=== PATIENT | female | born 1940 | race Caucasian/White ===

== ENCOUNTER 2024-11-14 13:06 | Outpatient (AMB) | payer MEDICARE, SELFPAY ==
--- OUTSIDE RECORDS SUMMARY | 2024-11-14 13:25 | XMS_ITS | Clinical Summary ---
Author Organization [facility] Address [address] [place] [address] Care Team Providers Care Post Partum Nurse Name Role Phone Deneen Castelan MD Primary Care Provider [phone] Social History Tobacco Use Types Packs/Day Years Used Date Smoking Tobacco: Never Assessed Sex and Gender Information Value Date Recorded Sex Assigned at Not on file Gender Identity Not on file Sexual Orientation Not on file Job Start Date Occupation Industry Not on file Not on file Not on file Plan of Treatment Upcoming Encounters Date Type Department Care Team (Late st Contact Info) Description 01/01/2025 2:30 PM EDT Office Visit Gastroenterology - [address] [place] [id number] Adam Vegas MD [address] [place] [address] Health Maintenance Due Date Last Done Comments DTaP,Tdap,and Td Vaccines (1 - Tdap) 1960 Zoster Vaccines (1 of 2) 1991 Pneumococcal Vaccine: 65+ Ye ars (1 of 1 - PCV) 2006 RSV Immunization Patients 60 + Years Old (1 - 1-dose 75+ series) 2016 Depression Screening 05/12/2024 Falls Risk Assessment 05/12/2024 Medicare Annual Wellness Visit 05/12/2024 Osteoporosis Screening (Bone Density Screening) 05/12/2024 Social Influencers of Health Screening 05/12/2024 COVID-19 Vaccine ( - 2023-2 5 season) 2024 Influenza Vaccine (#1) 2024 HIB Vaccines Aged Out No longer eligi ble based on patient's age to complete this topic HPV Vaccines Aged Out No longer eligi ble based on patient's age to complete this topic Hepatitis A Vaccines Aged Out No long er eligible based on patient's age to complete this topic Hepatitis B Vaccines Aged Out No long er eligible based on patient's age to complete this topic IPV Vaccines Aged Out No longer eligi ble based on patient's age to complete this topic MMR Vaccines Aged Out No longer eligi ble based on patient's age to complete this topic Meningococcal ACWY Vaccine Aged Out N o longer eligible based on patient's age to complete this topic RSV Immunization Patients Un isidro 20 months Aged Out No longer eligible b ased on patient's age to complete this topic Varicella Vaccines Aged Out No longer eligible based on patient's age to complete this topic Care Teams Post Partum Nurse Relationship Specialty Start Date End Date Deneen Castelan MD [address] [place] [address] [address] MIKE Benito PCP - General Internal Medicine 10/26/24
[2024-11-14 13:37] VITALS: BP 132/66; PULSE 62; BMI 24.9
--- NOTE | 2024-11-14 13:37 | MHC.OFFVIS ---
Vital Signs 11/14/24 13:37 Height 5 ft Weight 127 lb 6 oz BMI 24.9 BP 132/66 Blood Pressure Location Lt brachial Position Sitting Pulse 62 Pulse Source Pulse Oximeter Intake Visit Reasons: Arthritis Intake Note: Patient presents for follow up on osteoarthritis, sjogren's, raynaud's. She last saw Dr. Coon the last day she worked at [employer]. Allergies penicillin G Adverse Reaction (Intermediate, Unverified 11/14/24 13:47) Unknown aspirin Adverse Reaction (Unknown, Verified 11/14/24 13:47) Unknown nitrofurantoin Adverse Reaction (Unknown, Unverified 11/14/24 13:47) Unknown povidone Adverse Reaction (Unknown, Verified 11/14/24 13:47) povidine idodine topical Sulfa (Sulfonamide Antibiotics) Adverse Reaction (Unknown, Verified 11/14/24 13:47) Unknown egg allergy Adverse Reaction (Unknown, Uncoded 11/14/24 13:47) Unknown HPI HPI Arthritis: Details: Raynaud's syndrome is not controlled in her hands and feet. This is new for her this winter. She feels cold all the time. She is under a lot of stress at home with her grandson moving in who is in the middle of a divorce with children involved. She denies any new joint symptoms, dyspnea, pleurisy, urinary symptoms, rash, skin tightening, fevers. She continues to have dry mouth. She is not taking pilocarpine. She uses OTC biotin lozenges with benefit. She has had no fractures. She brings in bone density report from 04/06/2024. She takes vitamin-D supplement daily. She does not take calcium supplement. She is lactose intolerant and does not eat dairy products. She does not recall on being on Fosamax or any other medication to treat osteoporosis. She denies having heartburn. Review of Systems Const All systems reviewed & are unremarkable except as noted in HPI and below Physical Exam Vital Signs: Last Vital Signs Pulse 62 11/14/24 13:37 BP 132/66 11/14/24 13:37 BMI result Body Mass Index 24.9 Const Other: General: Comfortable CVS: RRR Respiratory: clear to auscultation bilaterally. Good respiratory effort Skin: No lesions seen, no digital ulcerations. Her toes turn purple when exposed to the cold MSK: No tenderness of any joints. Good range of motion of upper extremities. She has limited full knee flexion and external rotation of bilateral hips. No synovitis. Assessment & Plan Assessment & Plan (1) Sjogrens syndrome: Comment: Positive SSA antibody and DEFLECTOR OPERATOR antibody. She has been on azathioprine for possible joint symptoms. We reviewed labs from 09/2024, which do not reveal active disease systemically. She continues to have dry mouth with some benefit on Biotene OTC products. She does not have pilocarpine on her medication list and does not recall taking it anymore. Code(s): M35.00 - Sjogren syndrome, unspecified Category: Medical Plan: Continue azathioprine 100 mg daily. We will consider decreasing dose next visit Restart pilocarpine 5 mg t.i.d. Labs for disease monitoring up-to-date (2) Raynaud disease without gangrene: Comment: Active on amlodipine 2.5 mg daily Code(s): I73.00 - Raynaud's syndrome without gangrene Category: Medical Plan: Increased amlodipine to 5 mg daily Return to clinic in 1 month (3) Osteoporosis: Comment: On bone density 04/06/2024 with lowest T-score -2.5 femoral neck, total hip -2.0, AP spine -0.2. Treatment is indicated. Treatment with Fosamax is indicated. Code(s): M81.0 - Age-related osteoporosis without current pathological fracture Category: Medical Plan: Baseline labs ordered Continue vitamin-D supplement. 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: Code(s): Z79.899 - Other half-way (current) drug therapy Category: Medical Plan: See above Orders: Orders Vitamin D 25-OH Total Today M81.0 - Age-related osteoporosis without current pathological fracture Albumin Level Today M81.0 - Age-related osteoporosis without current pathological fracture Calcium Today M81.0 - Age-related osteoporosis without current pathological fracture Alkaline Phosphatase Bone Today M81.0 - Age-related osteoporosis without current pathological fracture Medications: New amlodipine 5 mg PO DAILY 30 tabs 11RF pilocarpine HCl 5 mg PO TID 90 tabs 5RF Coding Level of Care Code Est Pt Level 4 (30353) Complex EM visit Add On G2211 Diagnoses Sjogrens syndrome M35.00 Raynaud disease without gangrene I73.00 Osteoporosis M81.0 Other engineer system administrator (current) drug therapy Z79.550
== END 2024-11-14 14:18 | disposition home or self-care (01) ==
PROVIDERS: PCP Internal Medicine; Visit Provider Internal Medicine Rheumatology
DX: M35.00 Sjogren syndrome, unspecified (principal); I73.00 Raynaud's syndrome without gangrene; M81.0 Age-related osteoporosis without current pathological fracture; Z79.899 Other long term (current) drug therapy
CPT/HCPCS: 99214; G2211

== ENCOUNTER 2024-11-14 13:06 | Outpatient (REF) | payer MEDICARE, SELFPAY ==
--- OUTSIDE RECORDS SUMMARY | 2024-11-14 14:30 | XMS_ITS | Clinical Summary ---
Author Organization [facility] Address [address] [place] [address] Care Team Providers Care Caramel Candy Maker Helper Name Role Phone Deneen Castelan MD Primary Care Provider [phone] Social History Tobacco Use Types Packs/Day Years [...] [address] [place] [phone] Adam Vegas MD [address] [place] [address] Health Maintenance Due Date Last Done Comments [...] age to complete this topic Care Teams Caramel Candy Maker Helper Relationship Specialty Start Date End Date Deneen Castelan MD [address] [place] [address] [address] MIKE Benito PCP - General Internal Medicine 10/26/24
[2024-11-14 18:28] LABS: Albumin Level 3.8 g/dL (3.5-5.0); Calcium 9.3 mg/dL (8.4-10.2)
[2024-11-14 18:41] LABS: Vitamin D 25-OH Total 105.9 ng/mL (>30)
[2024-11-17 13:58] LABS: Alkaline Phosphatase Bone 11.7 mcg/L (see note)
== END 2024-11-14 13:07 | disposition home or self-care (01) ==
LOC: HO.HKASLDS 13:06
PROVIDERS: PCP Internal Medicine; Visit Provider Internal Medicine Rheumatology
DX: M81.0 Age-related osteoporosis without current pathological fracture (principal); M35.00 Sjogren syndrome, unspecified; I73.00 Raynaud's syndrome without gangrene; Z79.899 Other long term (current) drug therapy
CPT/HCPCS: 36415; 82040; 82306; 82310; 84075; 99212

== ENCOUNTER 2024-12-13 13:04 | Outpatient (AMB) | payer MEDICARE, SELFPAY ==
--- NOTE | 2024-12-13 13:09 | A.OFFVIS_ITS ---
Vital Signs 12/13/24 13:10 Height 5 ft Weight 124 lb 8.979 oz BMI 24.3 BP 118/76 Pulse 66 Pulse Source Palpation Intake Visit Reasons: RTC 1 month Intake Note: Patient presents for follow up on osteoarthritis, sjogren's follow up Allergies penicillin G Adverse Reaction (Intermediate, Verified 12/13/24 13:14) Unknown aspirin Adverse Reaction (Unknown, Verified 12/13/24 13:14) Unknown nitrofurantoin Adverse Reaction (Unknown, Verified 12/13/24 13:14) Unknown povidone Adverse Reaction (Unknown, Verified 12/13/24 13:14) povidine idodine topical Sulfa (Sulfonamide Antibiotics) Adverse Reaction (Unknown, Verified 12/13/24 13:14) Unknown egg allergy Adverse Reaction (Unknown, Uncoded 11/14/24 13:47) Unknown HPI HPI RTC 1 month: Details: She has not noted any difference with taking amlodipine 5 mg daily. She continues to have cold hands and feet. She is constantly warming her hands and feet and using heater and warm blankets. She denies joint pain and stiffness. No joint swelling. No change in dry mouth with pilocarpine. Review of Systems Const All systems reviewed & are unremarkable except as noted in HPI and below Physical Exam Vital Signs: Last Vital Signs Pulse 66 12/13/24 13:10 BP 118/76 12/13/24 13:10 BMI result Body Mass Index 24.3 Const Other: General: Comfortable CVS: RRR Respiratory: clear to auscultation bilaterally. Good respiratory effort Skin: No lesions seen, no digital ulcerations or discoloration of fingertips. The tips of her toes are purple. MSK: No tenderness of any joints. Good range of motion of upper extremities. She has limited full knee flexion and external rotation of bilateral hips. No synovitis. Assessment & Plan Assessment & Plan (1) Sjogrens syndrome: Comment: We reviewed labs from 09/2024, which do not reveal active disease systemically. She continues to have dry mouth with some benefit on Biotene OTC products (losenges qhs) without improvement on pilocarpine. Exams did not reveal inflammatory arthritis or symptoms from inflammatory arthritis. At this time I do not have an indication for patient to be on azathioprine. It is not my preferred drug for treatment of inflammatory arthritis related to Sjogren syndrome. I discussed considering discontinuing azathioprine and monitoring patient's symptoms clinically. Patient agrees with plan. Rheumatology history. Positive SSA antibody and MARKETING PLANNING MANAGER antibody. She has sicca symptoms. She has been on azathioprine for possible joint symptoms started by Dr. Dunn . 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 Monitor joint symptoms clinically. Continue pilocarpine 5 mg t.i.d. I will give it more time as she has only been on it for 1 month. Continue Biotene products with lozenges PRN and q.h.s. Labs for disease monitoring up-to-date Return to clinic in 1-2 months for Raynaud's syndrome management. See below (2) Raynaud disease without gangrene: Comment: Active on amlodipine 5mg daily Code(s): I73.00 - Raynaud's syndrome without gangrene Category: Medical Plan: Increased amlodipine to 7.5 mg daily Return to clinic in 1-2 month (3) Osteoporosis: Comment: On bone density 04/06/2024 with lowest T-score -2.5 femoral neck, total hip -2.0, AP spine -0.2. Treatment is indicated. No history of fragility fracture. Treatment with Fosamax is indicated. Discussed side effects, benefits and monitoring. Code(s): M81.0 - Age-related osteoporosis without current pathological fracture Category: Medical Plan: She discontinued vitamin D due to vitamin D level >100. We discussed the risk of toxicity with high vitamin-D level. Start fosamax 70mg once weekly Bone density due after March 2026 (4) Other local intermodal truck driver (current) drug therapy: Code(s): Z79.899 - Other local intermodal truck driver (current) drug therapy Category: Medical Plan: See above Medications: New alendronate 70 mg PO QWEEK 12 tabs 1RF amlodipine Take 7.5mg daily total 2.5 mg PO DAILY 30 tabs 11RF Coding Level of Care Code Est Pt Level 4 (22004) Complex EM visit Add On G2211 Diagnoses Sjogren's syndrome with keratoconjunctivitis sicca M35.01 Sjogren organ or system involvement: keratoconjunctivitis Raynaud disease without gangrene I73.00 Osteoporosis M81.0 Other local intermodal truck driver (current) drug therapy Z79.894
[2024-12-13 13:10] VITALS: BP 118/76; PULSE 66; BMI 24.3
--- OUTSIDE RECORDS SUMMARY | 2024-12-13 15:28 | XMS_ITS | Clinical Summary ---
Author Organization [facility] Address [address] [place] [address] Care Team Providers Care Leather Goods I Assembler Name Role Phone Deneen Castelan MD Primary Care Provider [phone] Social History Tobacco Use Types Packs/Day Years Used Date Smoking Tobacco: Never Assessed Comments Unknown Sex and Gender Information Value Date Recorded Sex Assigned at Not on file Legal Sex Female 11:03 AM EDT Gender Identity Not on file Sexual Orientation Not on file Plan of Treatment Upcoming Encounters Date Type Department Care Team (Late st Contact Info) Description 01/01/2025 2:40 PM EDT Office Visit Gastroenterology - [address] [place] [address] Adam Vegas MD [address] [place] [address] Health Maintenance Due Date Last Done Comments DTaP,Tdap,and Td Vaccines (1 - Tdap) 1960 Pneumococcal Vaccine: 50+ Ye ars (1 of 1 - PCV) 1991 Zoster Vaccines (1 of 2) 1991 RSV Immunization Patients 60 + Years Old [...] patient's age to complete this topic Meningococcal B Vacine Aged Out No lo nger eligible based on patient's age to complete this topic RSV Immunization Patients Un isidro 20 months Aged Out No longer eligible b ased on patient's age to complete this topic Varicella Vaccines Aged Out No longer eligible based on patient's age to complete this topic Insurance MEDICARE [facility] Care Teams Leather Goods I Assembler Relationship Specialty Start Date End Date Deneen Castelan MD [address] [place] [address] [place] PCP - General Internal Medicine 10/26/24
== END 2024-12-13 13:42 | disposition home or self-care (01) ==
PROVIDERS: PCP Internal Medicine; Visit Provider Internal Medicine Rheumatology
DX: M35.01 Sjogren syndrome with keratoconjunctivitis (principal); I73.00 Raynaud's syndrome without gangrene; M81.0 Age-related osteoporosis without current pathological fracture; Z79.899 Other long term (current) drug therapy
CPT/HCPCS: 99214; G2211

== ENCOUNTER → 2024-12-13 13:04 | Outpatient (BNVA) | payer MEDICARE, SELFPAY | PROVIDERS: PCP Internal Medicine; Visit Provider Internal Medicine Rheumatology | DX: M35.01 Sjogren syndrome with keratoconjunctivitis (principal); I73.00 Raynaud's syndrome without gangrene; M81.0 Age-related osteoporosis without current pathological fracture; Z79.899 Other long term (current) drug therapy | CPT/HCPCS: 99212 ==

== ENCOUNTER 2025-01-11 12:35 | Outpatient (AMB) | payer MEDICARE, SELFPAY ==
--- NOTE | 2025-01-11 12:37 | A.OFFVIS_ITS ---
Vital Signs 01/11/25 12:39 Height 5 ft Weight 129 lb 10.109 oz BMI 25.3 BP 160/100 H Intake Visit Reasons: 4-6 weeks Intake Note: Patients presents today for a follow u for Sj?gren's Syndrome? Accompanied by: Self / Same As Patient Allergies penicillin G Adverse Reaction (Intermediate, Verified 01/11/25 12:41) Unknown aspirin Adverse Reaction (Unknown, Verified 01/11/25 12:41) Unknown nitrofurantoin Adverse Reaction (Unknown, Verified 01/11/25 12:41) Unknown povidone Adverse Reaction (Unknown, Verified 01/11/25 12:41) povidine idodine topical Sulfa (Sulfonamide Antibiotics) Adverse Reaction (Unknown, Verified 01/11/25 12:41) Unknown egg allergy Adverse Reaction (Unknown, Uncoded 11/14/24 13:47) Unknown HPI HPI 4-6 weeks: Details: She continues to have feeling of cold hands and feet especially at night. She denies having paraesthesia or pain when hands and feet are cold. She continues to have discoloration of her hands. She is currently on amlodipine 5 mg b.i.d.. Pharmacy did not have 2.5 mg tablet. It is hard for patient to get up. She does not get up before 09:00. She has increased fatigue that improves by the end of the day. She stopped taking vitamin-D supplement 125 mcg daily (5000 IU). Review of Systems Const All systems reviewed & are unremarkable except as noted in HPI and below Physical Exam Vital Signs: Last Vital Signs BP 160/100 H 01/11/25 12:39 BMI result Body Mass Index 25.3 Const Other: General: Comfortable CVS: RRR Respiratory: clear to auscultation bilaterally. Good respiratory effort Skin: No lesions seen, no digital ulcerations. She has purple discoloration left hand on her MCPs and proximal phalanges. MSK: No tenderness of any joints. Assessment & Plan Assessment & Plan (1) Raynaud disease without gangrene: Comment: She has had no change on amlodipine 5 mg b.i.d. She has discoloration in her left hand with continued sensation of cold hands and feet, which may be related to chronic uncontrolled Raynaud's syndrome. I need to consider alternative etiology such as peripheral vascular disease. Code(s): I73.00 - Raynaud's syndrome without gangrene Category: Medical Plan: Increase amlodipine to 12.5 mg once weekly Her blood pressure is high this visit. I recommend that she monitor her blood pressure. If it continues to remain elevated, contact PCP for further manage ment If her symptoms do not improve at follow-up, I will need to consider getting duplex ultrasound workup of upper extremity and lower extremity to rule out peripheral vascular disease Return to clinic in 3 months (2) Fatigue: Comment: Affecting patient's function as she sleeps in for most of the day. Recent labs 12/2024 reveal normocytic anemia. Code(s): R53.83 - Other fatigue Category: Medical Plan: I recommend that she follow up with PCP for further workup of anemia to determine cause as it may be contributing to her fatigue. Consider sleep study to rule out sleep apnea (3) Osteoporosis: Comment: Vitamin-D level 11/2024 >100. She discontinued vitamin-D supplement. Normal calcium. History: On bone density 04/06/2024 with lowest T-score -2.5 femoral neck, total hip -2.0, AP spine -0.2. Treatment is indicated. No history of fragility fracture. Alendronate started 12/2024-. Code(s): M81.0 - Age-related osteoporosis without current pathological fracture Category: Medical Plan: Continue alendronate once weekly Monitor off of vitamin-D supplement Return to clinic in 3 months. I will be ordering labs for drug monitoring and osteoporosis management at next visit (4) Sjogrens syndrome: Comment: Dry mouth is stable on Biotene OTC products (losenges qhs) and pilocarpine. She has discontinued azathioprine without any new symptoms including development of inflammatory arthritis. Rheumatology history. Positive SSA antibody and COMMUNITY ENGAGEMENT MANAGER antibody. She has sicca symptoms. She has been on azathioprine for possible joint symptoms started by Dr. Dunn . Azathioprine discontinued 12/13/2024 as patient did not have any clinical evidence of inflammatory arthritis and it is not the preferred DMARD therapy for Sjogren's related inflammatory arthritis. 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 Monitor clinically for recurrence of inflammatory arthritis Return to clinic in 3 months Medications: New amlodipine 10 mg PO DAILY 30 tabs 10RF Changed From amlodipine Take 7.5mg daily total 2.5 mg PO DAILY 30 tabs 11RF To amlodipine Take 12.5mg daily total. Increase dose 2.5 mg PO DAILY 30 tabs 11RF Discontinued amlodipine Discontinued Reason: Doctor's Order 5 mg PO DAILY 30 tabs 11RF Coding Level of Care Code Est Pt Level 4 (41246) Complex EM visit Add On G2211 Diagnoses Raynaud disease without gangrene I73.00 Fatigue R53.83 Osteoporosis M81.0 Sjogren's syndrome with keratoconjunctivitis sicca M35.01 Sjogren organ or system involvement: keratoconjunctivitis Time Spent (min) 25
[2025-01-11 12:39] VITALS: BP 160/100; BMI 25.3
--- OUTSIDE RECORDS SUMMARY | 2025-01-11 13:38 | XMS_ITS | Clinical Summary ---
Author Organization [facility] [address] [facility] Address [address] [place] [address] Phone Care Team Providers Care Trail Construction Worker Name Role Phone Deneen Castelan MD Primary Care Provider [phone] Allergies Active Allergy Reactions Criticality Noted Date Comments Aspirin 01/01/2025 Codeine 01/01/2025 Penicillins 01/01/2025 Sulfa (Sulfonamide Antibiotics) 12/10 Medications amLODIPine (NORVASC) 2.5 mg tablet 11/02/2024 Active amLODIPine (NORVASC) 5 mg tablet 11/14/2024 Active atenoloL (TENORMIN) 50 mg tablet 08/09/2024 Active estradioL (ESTRACE) 0.5 mg tablet 11/02/2024 Active FLUoxetine (PROzac) 20 mg capsule 11/02/2024 Active latanoprost (XALATAN) 0.005 % ophthalmic solution 12/30/2024 Active LORazepam (ATIVAN) 1 mg tablet 12/23/2024 Active losartan (COZAAR) 25 mg tablet 11/21/2024 Active omeprazole (PriLOSEC) [address] capsule 11/28/2024 Active simvastatin (ZOCOR) 10 mg tablet 11/09/2024 Active timolol (TIMOPTIC) 0.5 % ophthalmic solution 10/05/2024 Active ursodioL (ACTIGALL) 500 mg tablet 10/29/2024 Active alendronate (FOSAMAX) 70 mg tablet 12/13/2024 Active Active Problems Problem Noted Date Diagnosed Date 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6 oz pur e alcohol) Comments Unknown Sex and Gender Information Value Date Recorded Sex Assigned at Not on file Legal Sex Female 11:03 AM EDT Gender Identity Not on file Sexual Orientation Not on file Obstetrics History Last Filed Vital Signs Vital Sign Reading Time Taken Comments Blood Pressure - - Pulse - - Temperature - - Respiratory Rate - - Oxygen Saturation - - Inhaled Oxygen Concentration - - Weight 57.2 kg (126 lb) 01/01/2025 2:41 PM EDT Height 152.4 cm (5') 01/01/2025 2:41 PM EDT Body Mass Index 24.61 01/01/2025 2:41 PM EDT Plan of Treatment Health Maintenance Due Date Last Done Comments Hepatitis A Vaccines (4 of 4 - Hep A Twinrix risk 4-dose series) 05/04/2012 11/06/2011, 10/23/2011, 06/04/2011, Additional history exists Cholesterol Screening (Lipid Panel) 05/12/2024 Depression Screening 05/12/2024 Falls Risk Assessment 05/12/2024 Medicare Annual Wellness Visit 05/12/2024 Osteoporosis Screening (Bone Density Screening) 05/12/2024 Social Influencers of Health Screening 05/12/2024 COVID-19 Vaccine ( season) 2024 07/25/2022, 01/14/2022, 08/20/2021, Additional history exists Influenza Vaccine (#1) 2024 Hypertension/CHF/CAD Annual BMP Blood Test 01/02/2025 DTaP,Tdap,and Td Vaccines (3 - Td or Tdap) 11/19/2033 11/19/2023, 02/25/2012 Hepatitis B Vaccines Completed 11/06/2011, 10/23/2011, 06/04/2011, Additional history exists Pneumococcal Vaccine: 50+ Years Completed 02/12/2015, 02/25/2012 Zoster Vaccines Completed 09/21/2018, 06/29/2018 RSV Immunization Adult Patients Completed 11/12/2023 HIB Vaccines Aged Out No longer eligi [...] to complete this topic RSV Immunization Patients Under 20 months Aged Out No longer eligible based on patient's age to complete this topic Varicella Vaccines Aged Out No longer eligible based on patient's age to complete [place] [id number] MEDICARE [facility] Care Teams Trail Construction Worker Relationship Specialty Start Date End Date Deneen Castelan MD [address] [place] [address] Jesus [place] PCP - General Internal Medicine 10/26/24
--- OUTSIDE RECORDS SUMMARY | 2025-01-11 13:39 | XMS_ITS | Data Portability ---
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 Patient takes OTC Azo with pain relief. Patient denied fever, chills, nausea, vomiting, blood in her urine, abdominal/back/f lank pain, confusion. Exam: Elderly female well appearing, no acute distress, non-toxic appearance Heart normal rate and rhythm. No murmurs, rubs or gallops. Lungs clear to auscultation; No respiratory distress; No wheezing, rhonchi, or rales Soft, non-tender, and non-distended. Bowel sounds normal. No peritoneal signs. No CVA tenderness DDx considered, but not limited to: UTI - most likely diagnosis based on clinical presentation pyonephritis - unlikely STI - unlikely Work up/Results: Urine dipstick: +2 leukocytes; +2 nitrates; +1 blood Urine culture pending results Plan/Discussion: - UTI is the most likely diagnosis based on clinical presentation and results of urine dipstick - I discussed the patient case with Dr. Michel and under their direction they prescribed the following medications: Macrobid 100mg PO BID X5days - patient was advised to continue taking OTC Azo for 2 days for pain - urine culture pending results; will notify patient if change in antibiotics needed - follow up with PCP as needed if your symptoms worsen or do not improve with treatment within 2-3 days. - educated patient when to seek immediate medical attention, call 911/ED In order to obtain further information and compare any laboratory results/values, I have accessed patient records on the [employer]. This information was pertinent in my medical decision making today. Time On Scene with Patient: 00:44:54 [email or web address] Not available 11/06/2018 15:45:33 06/26/2019 06/26/2019 Overview/History : 79-year-old female, known to , new to this provider, with a Pmhx that includes not limited to erosive esophagitis, diverticulosis, insomnia, Sjogren's syndrome, hypertension, hyperlipidemia, who was evaluated for complaints of right hip pain that started 2 days ago. The patient states she lost her balance falling onto her right side. The following day she noticed increased pain to the right groin that gets worse with ambulation and improves when laying supine. She denies any paresthesias or weakness to her extremities. She denies hitting her head or any other injuries. She has been using her husbands wheelchair to get around although typically does not require assistance. Exam: General: Well appearing, well nourished, NAD. Nontoxic appearing. HEENT: PEERLA. EOMI. Head: Atraumatic. Neck: No midline cervical tenderness. Skin: Good turgor, no rash or unusual bruising. Heart: Regular rate and rhythm. no obvious murmurs. Lungs: Clear to auscultation. No increased respiratory effort. Back: No CVA tenderness. No midline tenderness to T/L spine. Extremities: No cyanosis. Mild discomfort with active ROM ro R hip. No shortening or external rotation. Mild discomfort to palpation of R groin no palpable masses. CSM intact distally. DDx considered, but not limited to: Hip fx. R groin strain. Plan/Discussion: A right hip x-ray was ordered to assess for possible fracture. Patient was advised to use acetaminophen 1000 mg T.i.d. as needed. Discussed the need for further evaluation if she develops increasing pain, paresthesias or any other worrisome symptoms. In order to obtain further information and compare any laboratory results/values, I have accessed old patient records. This information was pertinent in my medical decision making today. Time On Scene with Patient: 00:27:50 [email or web address] Not available 06/27/2019 17:19:29 08/21/2022 08/21/2022 Time On Scene with Patient: 00:55:29 Overview/History : 82 y/o female known to DH new to provider with hx of HTN, hyperlipidemia, erosive esophagitis, diverticulosis, sjogren's syndrome, primary biliary cirrhosis. pt reports she fell yesterday [place] the [place] she tripped while going around the curb/ plants. states she fell landing on her back. denies hitting her head, no LOC. states her back was sore last night but feels better today. she c/o pain in her right distal forearm/ wrist. hand is swollen faint ecchymosis dorsally. she denies any numbness tingling. states she has had her hand and wrist wrapped since last night with tim wrap. Exam: very pleasant 82 y/o female well appearing, alert and NAD. appears in moderate pain, right hand/ wrist is wrapped with tim wrap. mouth moist mucous membranes. no cervial lymphadenopathy. lungs clear to auscultation bilaterally. heart: RRR no murmurs rubs or gallops. abdomen is soft, normal bowel sounds, non tender. no cervical, thoracic, lumbar midline tenderness. strength is normal and equal bilaterally. pulses normal and equal bilaterally. no peripheral edema. right hand: edema and failt ecchymosis noted dorsally. tenderness on palpation of distal radius and dorsal wrist and ulnar aspect. no snuff box tenderness. no metacarpal tenderness. ROM slightly limited due to pain. tenderness throughout ROM. Vital Signs: pt is hypertensive, asymptomatic bp initially 184/86, repeat at the end of visit 170/82, HR 80, RR 16, T 98.4, O2 99% DDx considered, but not limited to: fracture: considered due to trauma, xrays pending. wrist sprain: considered but due to age, pain, swelling, ecchymosis suspicious for fracture. cellulitis: considered but she is afebrile, no open wounds. Work up/Results: xray of the right hand and wrist pending. Plan/Discussion: Right wrist/ hand pain/ sprain: sugar tong splint applied due to injury and suspicion for fracture. advised pt to elevate her wrist and apply ice. do not apply ice directly to the skin. she was instructed to keep the splint on, do not get it wet, ok to use her sling as needed for comfort since splint is heavy. she will call [facility] in the morning to schedule her xrays. take tylenol as directed on the package for pain. advised if fracture is found on xrays she will need to see ortho. BP elevated likely due to pain. she denies cp, sob, dizziness, RENEE, weakness, edema. advised if symptoms worsen ors he develops any RENEE, dizziness, cp, sob, weakness go right to the ER. follow up with pcp in 3-5 days or sooner prn. go to the ER with any worsening symptoms: increased pain, swelling, numbness, cp, sob, dizziness, weakness. Proper Personal Protective Equipment (PPE), including gloves, eye protection and masks were donned and doffed appropriately and all equipment cleaned using approved technique with germicidal disposable wipes prior to and after care of this patient according to [facility] infection prevention protocols. [email or web address] Not available 08/22/2022 01:00:02 08/04/2023 08/04/2023 Time On Scene with Patient: 00:21:51 Brief Overview: 83 y/o female c/o productive cough with green sputum x 2 weeks now. purulent nasal drainage but no sinus pressure or pain. she denies fever but reports body aches, fatigue, decreased appetite and intermittent wheeze. no cp, sob, weakness, RENEE, dizziness. her step son who recently moved in with her a few weeks ago was sick and she suspect she caught what he had, she states he was not covid positive. Vital Signs: BP 120/70, HR 71, RR 18, T 97.7, O2 98% RA Exam: pleasant 83 y/o female appearing mildly ill, alert NAD sitting at kitchen table. mouth: moist mucous membranes no erythema, exudates, uvula is midline. lungs: few rhonchi RLL, no wheezes, rales. no tachypnea. heart: RRR no murmur rubs or gallops. no peripheral edema. no calf tenderness or edema, negative homans. skin: warm and dry no rashes or lesions. DDx considered, with rationale: Pneumonia: considered but she is afebrile, no tachypnea, hypoxia. PE: considered but no hypoxia or tachycardia. CHF: considered but no peripheral edema, no reported weight gain. Bronchitis: considered due to productive cough, VS stable, she is afebrile. Results/ work up: CXR pending. Proper Personal Protective Equipment (PPE), including gloves, eye protection and masks were donned and doffed appropriately and all equipment cleaned using approved technique with germicidal disposable wipes prior to and after care of this patient according to [facility]'s infection prevention protocols. [email or web address] Not available 08/04/2023 16:19:46 Plan of Treatment Reminders Order Date Submit Date Provider Last Modified By Organization Details Last Modified Time Details Appointments None recorded. Lab urinalysis, dipstick 2018 019 cheng [facility] - Home, [address] [place] [address], [id number], 9 12:23:23 culture, urine - [facility] 2018 019 [facility] (Centralized Electronic Ordering - All Locations), Patient Can Go To The Location Of Their Choice, [id number] 9 07:43:09 Referral None recorded. Procedures None recorded. Surgeries None recorded. Imaging XR, chest, 2 view - cough x 2 weeks r/o pneu 2022 023 [facility] [place] [facility] ([facility]), [address] [place] [address], [address], 3 17:26:01 XR, wrist, 3 or more view - fell and injured right wrist 2021 022 [place] [facility] [address] [place], [address], 2 09:23:35 XR, hand, 3 or more view - fell and injured right hand [email or web address] [place], [place] [address]ate Office ([facility]), [address] [place], [address], 3 17:21:12 unlisted imaging order - hip uni W or w/o pelvis 2-3 V-RT 2018 019 [facility] ([facility]), [address], [place], [address], 9 12:21:36 Medication Orders doxycycline hyclate 100 mg tablet 2022 023 [id number], [address] [facility], [place], [address], 14:47:25 Patient TargetsNo targets recorded. Patient Instructions Encounter Date Encounter Id Patient Instructions Last Modified By Organization Details Last Modified Time 11/06/2018 [id number] YOU WERE SEEN FO R URINARY TRACT INFECTION SYMPTOMS. YOUR URINALYSIS WAS POSITIVE FOR INFECTION. ADDITIONAL LABORATORY STUDIES WERE SEND TO CONFIRM THAT YOU WERE PRESCRIBED CORRECT ANTIBIOTICS. WE WILL NOTIFY YOU IF CHANGE OF ANTIBIOTICS NEEDED YOU CAN CONTINUE TAKING AZO TABLETS FOR PAIN FOR THE NEXT 2 DAYS FOLLOW UP WITH YOUR PRIMARY CARE DOCTOR NEEDED IF YOUR SYMPTOMS DO NOT IMPROVE OR WORSEN SEEK IMMEDIATE MEDICAL ATTENTION OR CALL 911 IF SYMPTOMS WORSEN OR IF YOU DEVELOP ANY NEW CONCERNING SYMPTOMS URINARY TRACT INFECTION INSTRUCTIONS BASIC INFORMATION Urinary tract infections(UTI) can involve any portion of the urinary tract. The most common presentation is a bladder infection/cystitis, which usually presents with urinary frequency, burning with urination, urgency, foul smelling cloudy urine and occasionally blood. Kidney infections are less frequent, but more serious, and present with fever, flank pain, malaise and sometimes shaking chills. UTI? s are common in women because of the female anatomy, and much less common in males. INSTRUCTIONS Drink plenty of fluid, water is best. Drinking fluids will help to flush the bacteria from your body. Urinate every 2-3 hours Wear cotton underwear and avoid Nylon, Spandex and Lycra which tend to trap moisture and thong underwear which may facilitate UTI? s . Avoid tub baths Avoid using Super Tampons Use only mild unscented soap to wash your genitals, such as Dove or Ivory, avoid heavily scented body washes. If you are sexually active urinate as soon as possible after intercourse. Yogurt and probiotics may help to establish a more healthy genital environment, and aid in prevention. MEDICATIONS 1.Antibiotics: Usually prescribed if you have a UTI, there are many different effective antibiotics available. It is important that you complete the course of antibiotics you are given. You should feel some improvement within 24-48 hours, if you do not it may be that the bacteria causing your infection is resistant to the prescribed medication. If a urine culture is obtained it will usually take at least 3-4 days to get the final result. 2. Anesthetic/Pain relievers: Phenazopyridine (Pyridium, Uribelle, AZO) is an anesthetic excreted in the urine. This medicine will turn your urine BRIGHT ORANGE! This is normal, and may stain your underwear can contacts. Take this medication as directed with food. 3. Tylenol and Ibuprofen can be helpful for the pain, fever and body aches that can be associated with a kidney infection. Please follow recommended dosing instructions on the bottle. FOLLOW UP 1. If your symptoms are not improving in 24-48 hours 2. If your symptoms are getting more severe 3. Any unusual vaginal discharge 4. Symptoms recur after you complete medication SEEK CARE IMMEDIATELY IF 1.You have shaking chills or temperature over 101.5 2. Severe flank pain 3. Persistent vomiting, unable to keep fluids or medicine down. 4. Worse despite medication. If you develop any new or worsening symptoms and need after hours care, please go to nearest ER and/or call 911. If you have additional concerns or develop a change in your condition between 8am-10pm, please call [facility] at [phone] to help navigate your care. [email or web address] Not available 11/06/2018 12:23:22 06/26/2019 [id number] Take 2 extra strength Tylenol 3 times a day as needed for discomfort. Can try applying ice for 10-15 minutes to see if this will help with discomfort. We will obtain an x-ray tomorrow to make sure there was no fracture. Use the walker as discussed if you need to ambulate. Follow up with your PCP as planned. Thank you [facility] your [facility]. We cannot always find the exact cause of your symptoms during your initial visit. Please follow up with your primary care provider or specialist as needed to be rechecked or seek medical attention if your symptoms do not go away or get worse. If you develop any new or worsening symptoms and need after hours care, please go to nearest ER and/or call 911. If you have additional concerns or develop a change in your condition between 8am-10pm, please call [facility] at [phone] to help navigate your care. I hope you start to feel better soon! Sincerely, Taiwo Garcia [facility] [email or web address] Not available 06/26/2019 20:45:05 08/04/2023 [id number] Inhaler Instructions Before use, you need to prime the inhaler: ? Take the cap off the mouthpiece and put the inhaler in the spacer ? Shake the inhaler for 5 seconds ? Hold the inhaler upright with 1 finger on the top of the canister, the thumb on the bottom of the inhaler, and your other hand holding the spacer ? Express a large breath ? Close lips around spacer ? Press down on the canister ? After you press down on the canister, breathe (or have your child breathe in) deeply and slowly and hold your breath for 10 seconds ? Take out of your mouth and slowly exhale ? If you were instructed to take 2 puffs of the inhaler, wait one minute before you give the second puff. Shake the inhaler again before the second puff. ? If the inhaler is a steroid medicine (also called a ? g lucocorticoid? or ? c orticosteroid? ), rinse out your mouth, gargle, and spit out the water Cleaning: If you use the inhaler every day, you need to clean it at least once a week. If you use less often, clean the inhaler when you see powder in or around the hole. To clean an inhaler: ? Remove the canister and cap from the mouthpiece. Do not wash the canister or put the canister under water. ? Run warm water through the mouthpiece for 30 to 60 seconds ? Shake the water off of the mouthpiece and let it air dry Clean the spacer every 1-2 weeks. First, remove the inhaler from the spacer. Wash the spacer with warm water and dishwashing soap, but do NOT rinse it. Then let it air dry. Leaving the spacer a little soapy after cleaning actually helps it work better. [email or web address] Not available 08/04/2023 14:53:03 Reason for Referral None Reported. Results Created Date Observation Date Name Description Value Unit Range Abnormal Flag Note LastModifiedBy Organization Detail LastModifiedTime 11/06/19 19 11/06/2018 urina lysis , dipst ick Appearance clear Not Available Spr - H ome [address] [place], [address], 11/06/2018 12:13:35 11/06/19 19 11/06/2018 urina lysis , dipst ick Color orange Not Available Spr - Home [address] [place], [address], 11/06/2018 12:13:35 11/06/1911/06/2018 urina lysis , dipst ick Glucose negati ve Not Available Spr - Home [address] [place], [address], 11/06/2018 12:13:35 11/06/1911/06/2018 urina lysis , dipst ick Bilirubin negati ve Not Available Spr - Home [address] [place], [address], 11/06/2018 12:13:35 11/06/1911/06/2018 urina lysis , dipst ick Ketones NEG Not Available Spr - Home [address] [place], [address], 11/06/2018 12:13:35 11/06/1911/06/2018 urina lysis , dipst ick Sp. [place] 1.025 Not Available Spr - Home [address] [place], [address], 11/06/2018 12:13:35 11/06/1911/06/2018 urina lysis , dipst ick Blood + Not Available Spr - Home [address] [place], [address], 11/06/2018 12:13:35 11/06/1911/06/2018 urina lysis , dipst ick pH 5.0 Not Available Spr - Home [address] [place], [address], 11/06/2018 12:13:35 11/06/19 19 11/06/2018 urina lysis , dipst ick Protein negati ve Not Available Spr - Home [address] [place], [address], 11/06/2018 12:13:35 11/06/19 19 11/06/2018 urina lysis , dipst ick Urobilirubin negati ve Not Available Spr - Home [address] [place], [address], 11/06/2018 12:13:35 11/06/1911/06/2018 urina lysis , dipst ick Nitrites ++ Not Available Spr - [facility] [address] [place], [address], 11/06/2018 12:13:35 11/06/1911/06/2018 urina lysis , dipst ick Leukocytes ++ Not Available Spr - H ome [address], [place], [address], 11/06/2018 12:13:35 11/06/1911/06/2018 cultu re, urine specimen description URINE Not Available [facility] (Centralized [facility] Ordering - All Locations) Patient Can Go To The Location Of Their Choice, [id number] 11/08/2018 07:43:09 11/06/1911/06/2018 cultu re, urine special requests NONE Not Available [facility] (Centralized Electronic Ordering - All Locations) Patient Can Go To The Location Of Their Choice, [id number] 11/08/2018 07:43:09 11/06/1911/08/2018 cultu re, urine culture >100,0 00 COL/ML ESCHER ICHIA COLI abnormal Not Available [facility] (Centralized Electronic Ordering - All Locations) Patient Can Go To The Location Of Their Choice, [id number] 11/08/2018 07:43:09 11/06/1911/08/2018 cultu re, urine report status FINAL 2018 Not Available [facility] (Centralized Electronic Ordering - All Locations) Patient Can Go To The Location Of Their Choice, 11/08/2018 07:43:11/06/1911/08/2018 cultu re, urine organism ORGANI SM >100,0 00 COL/ML ESCHER ICHIA COLI Not Available [facility] (Centralized Electronic Ordering - All Locations) Patient Can Go To The Location Of Their Choice, 11/08/2018 07:43:11/06/1911/08/2018 cultu re, urine method METHOD MIN. INHIB. CONC. (MCG/M L) Not Available [facility] (Centralized Electronic Ordering - All Locations) Patient Can Go To The Location Of Their Choice, 11/08/2018 07:43:11/06/1911/08/2018 cultu re, urine ampicillin AMPICI LLIN SUSCEP TIBLE susceptib le Not Available [facility] (Centralized Electronic Ordering - All Locations) Patient Can Go To The Location Of Their Choice, 11/08/2018 07:43:11/06/1911/08/2018 cultu re, urine ampicillin/s ulbactam AMPICI LLIN/S ULBACT AM SUSCEP TIBLE susceptib le Not Available [facility] (Centralized Electronic Ordering - All Locations) Patient Can Go To The Location Of Their Choice, 11/08/2018 07:43:11/06/1911/08/2018 cultu re, urine amoxicillin/ clavulanic acid AMOXIC ILLIN/ CLAVUL AN SUSCEP TIBLE susceptib le Not Available [facility] (Centralized Electronic Ordering - All Locations) Patient Can Go To The Location Of Their Choice, 11/08/2018 07:43:11/06/1911/08/2018 cultu re, urine cefazolin CEFAZO MICHAEL SUSCEP TIBLE susceptib le Not Available [facility] (Centralized Electronic Ordering - All Locations) Patient Can Go To The Location Of Their Choice, 11/08/2018 07:43:11/06/1911/08/2018 cultu re, urine cefepime CEFEPI ME SUSCEP TIBLE susceptib le Not Available [facility] (Centralized Electronic Ordering - All Locations) Patient Can Go To The Location Of Their Choice, 11/08/2018 07:43:11/06/1911/08/2018 cultu re, urine ceftriaxone CEFTRI AXONE SUSCEP TIBLE susceptib le Not Available [facility] (Centralized Electronic Ordering - All Locations) Patient Can Go To The Location Of Their Choice, 11/08/2018 07:43:09 11/06/1911/08/2018 cultu re, urine ciprofloxaci n CIPROF LOXACI N SUSCEP TIBLE susceptib le Not Available [facility] (Centralized Electronic Ordering - All Locations) Patient Can Go To The Location Of Their Choice, 11/08/2018 07:43:09 11/06/1911/08/2018 cultu re, urine gentamicin GENTAM ICIN SUSCEP TIBLE susceptib le Not Available [facility] (Centralized Electronic Ordering - All Locations) Patient Can Go To The Location Of Their Choice, 11/08/2018 07:43:09 11/06/1911/08/2018 cultu re, urine levofloxacin LEVOFL OXACIN SUSCEP TIBLE susceptib le Not Available [facility] (Centralized Electronic Ordering - All Locations) Patient Can Go To The Location Of Their Choice, 11/08/2018 07:43:09 11/06/1911/08/2018 cultu re, urine meropenem MEROPE NEM SUSCEP TIBLE susceptib le Not Available [facility] (Centralized Electronic Ordering - All Locations) Patient Can Go To The Location Of Their Choice, 11/08/2018 07:43:09 11/06/1911/08/2018 cultu re, urine nitrofuranto in NITROF URANTO IN SUSCEP TIBLE susceptib le Not Available [facility] (Centralized Electronic Ordering - All Locations) Patient Can Go To The Location Of Their Choice, 11/08/2018 07:43:09 11/06/1911/08/2018 cultu re, urine piperacillin /tazobactam PIPERA CILLIN /TAZOB AC SUSCEP TIBLE susceptib le Not Available [facility] (Centralized Electronic Ordering - All Locations) Patient Can Go To The Location Of Their Choice, 11/08/2018 07:43:09 11/06/1911/08/2018 cultu re, urine trimeth/sulf amethox TRIMET H/SULF AMETHO X SUSCEP TIBLE susceptib le Not Available [facility] (Centralized Electronic Ordering - All Locations) Patient Can Go To The Location Of Their Choice, [id number] 11/08/2018 07:43:09 11/06/19 19 11/08/2018 cultu re, urine tetracycline TETRAC YCLINE SUSCEP TIBLE susceptib le Not Available [facility] (Centralized Electronic Ordering - All Locations) Patient Can Go To The Location Of Their Choice, [id number] 11/08/2018 07:43:09 06/27/20 19 06/27/2019 unlis cat armasi ng order No observ ation record ed. [facility] ([facility]) [address], [place], [address], 06/27/2019 18:46:03 08/24/20 22 08/24/2022 XR, wrist , 3 or more view WRIST COMPLE TE MIN 3V, RIGHT FINDIN GS: No acute fractu re or disloc ation. The osseou s struct ures appear intact . Joint spaces are narrow ed. Soft tissue s are unrema rkable . Old radial /ulna fractu res. CONCLU KRIS: No acute findin gs. Degene rative change s. Consid er a repeat study if sympto ms contin ue to persis t or progre ss. ELECTR ONICAL LY SIGNED BY TITUS DAVIS M.D. 2021 9:11:3 4 AM EST. [facility] [address] [address], [place], [address], 08/24/2022 11:38:01 08/24/20 22 08/24/2022 XR, hand, 3 or more view HAND MINIMU M 3 VIEWS, RIGHT FINDIN GS: No acute fractu re or disloc ation. The osseou s struct ures appear intact . Joint spaces are narrow ed. Soft tissue s are unrema rkable . CONCLU KRIS: No acute findin gs. Degene rative change s. Consid er a repeat study if sympto ms contin ue to persis t or progre ss. ELECTR ONICAL LY SIGNED BY TITUS DAVIS M.D. 2021 9:11:3 4 AM EST. WRIST COMPLE TE MIN 3V, RIGHT Result s: No acute fractu re or disloc ation. The osseou s struct ures appear intact . Joint spaces are narrow ed. Soft tissue s are unrema rkable . Old radial /ulna fractu res. Conclu kris: No acute findin gs. Degene rative change s. Consid er a repeat study if sympto ms contin ue to persis t or progre ss. Electr onical ly signed by TITUS DAVIS M.D. 2021 9:11:3 4 AM EST. HAND MINIMU M 3 VIEWS, RIGHT Result s: No acute fractu re or disloc ation. The osseou s struct ures appear intact . Joint spaces are narrow ed. Soft tissue s are unrema rkable . Conclu kris: No acute findin gs. Degene rative change s. Consid er a repeat study if sympto ms contin ue to persis t or progre ss. Electr onical ly signed by TITUS DAVIS M.D. 2021 9:11:3 4 AM EST. [facility] [address], [place], [address], 08/24/2022 11:38:08 08/04/20 23 08/04/2023 XR, chest , 2 view XRAY CHEST 2 VIEW FINDIN GS: No active pulmon beto infilt rates or pleura l effusi ons are seen. The heart is within normal limits in size. Hilar areas are normal . Pulmon beto vascul ature is normal . A modera te size hiatal hernia is presen t. CONCLU KRIS: No active diseas e is seen in the chest. A hiatal hernia is presen t. ELECTR ONICAL LY SIGNED BY SAQIB STALEY M.D. 2022 5:18:4 2 PM EDT. XRAY CHEST 2 VIEW Result s: No active pulmon beto infilt rates or pleura l effusi ons are seen. The heart is within normal limits in size. Hilar areas are normal . Pulmon beto vascul ature is normal . A modera te size hiatal hernia is presen t. Conclu kris: No active diseas e is seen in the chest. A hiatal hernia is presen t. Electr onical ly signed by SAQIB STALEY M.D. 2022 5:18:4 2 PM EDT. [facility] [address], [place], [id number], 08/05/2023 17:26:11 Result Notes None recorded. Procedures Surgical History Date Name Laterality Status Provider Name and Address Organization Details Recorded Time 022 Splint, Short Arm - DH completed REGINALD Harris [address], [place], [address], [place] [facility] 08/21/2022 21:19:17 cholecystectomy completed TAIWO GARCIA NP [address], [place], [address], [place] [facility] 06/26/2019 20:27:29 hysterectomy completed TAIWO GARCIA NP [address], [place], [address], [place] [facility] 06/26/2019 20:27:45 Imaging Results Imaging Date Name Status LastModified by [facility] Details LastModified Time 06/27/2019 unlisted imaging order [facility] [address] , [place], [address], 06/27/2019 18:46:03 08/24/2022 XR, wrist, 3 or more view completed [facility] [address], [place], [id number], 08/24/2022 11:38:01 08/24/2022 XR, hand, 3 or more view completed [facility] [address], [place], [id number], 08/24/2022 11:38:08 08/04/2023 XR, chest, 2 view completed [facility] [address], [place], [id number], 08/05/2023 17:26:11 Procedure Notes None recorded. Medical Equipment None Reported. Allergies Allergen ID Allergen Name Allergen Category Reaction Reaction Severity Criticality Documentation Date Start Date Code Code System Note Provider Name and Address Organization Details Recorded Time 20008 aspirin medicatio n Not available Not available Not available 11/06/2018 1191 RxNorm REGINALD LUCIANO [address], [place], [address], [place] [facility] 9 11:52:06 75420 iodine medicatio n Not available Not available Not available 11/06/2018 5933 RxNorm REGINALD LUCIANO [address], [place], [address], [place] [facility] 9 11:52:18 71276 Product containin g penicilli n (product) medicatio n Not available Not available Not available 11/06/2018 08099 8001 SNOMED REGINALD LUCIANO [address], [place], [address], [place] [facility] 9 11:57:12 Medications Name Sig Start Date Stop Date Status Note LastModified by Organization Details LastModified Time fluoxetine 40 mg capsule 08/21 completed Not Available Not Available Not Available latanoprost 0.005 % eye drops active Not Available Not Available Not Available azithromyci n 250 mg tablet 08/04 completed Not Available Not Available Not Available atenolol 100 mg tablet active Not Available Not Available Not Available prednisone 20 mg tablet active Not Available Not Available Not Available betamethaso ne, augmented 0.05 % topical cream 11/06 completed Not Available Not Available Not Available simvastatin 10 mg tablet active Not Available Not Available Not Available azathioprin e 50 mg tablet active Not Available Not Available Not Available amlodipine 5 mg tablet active Not Available Not Available Not Available ciprofloxac in 500 mg tablet 11/06 completed Not Available Not Available Not Available triamterene 37.5 mg-hydrochl orothiazide 25 mg capsule active Not Available Not Available Not Available amlodipine 10 mg tablet 11/06 completed Not Available Not Available Not Available tacrolimus 0.1 % topical ointment 08/04 completed Not Available Not Available Not Available lidocaine 5 % topical patch 08/21 completed Not Available Not Available Not Available ursodiol 300 mg capsule active Not Available Not Available Not Available fluoxetine 10 mg capsule 06/26 completed Not Available Not Available Not Available betamethaso ne dipropionat e 0.05 % topical cream 11/06 completed Not Available Not Available Not Available omeprazole 20 mg capsule,del ayed release active Not Available Not Available Not Available estradiol 0.5 mg tablet active Not Available Not Available Not Available lorazepam 1 mg tablet active Not Available Not Available No t Available hydroxychlo roquine 200 mg tablet 11/06 completed Not Available Not Available Not Available zolpidem 10 mg tablet 11/06 completed Not Available Not Available Not Available albuterol sulfate HFA 90 mcg/actuati on aerosol inhaler active Not Available Not Available Not Available timolol maleate 0.5 % eye drops active Not Available Not Available Not Available betamethaso ne dipropionat e 0.05 % topical ointment active Not Available Not Available Not Available losartan 100 mg tablet 08/04 completed Not Available Not Available Not Available fluoxetine 20 mg capsule active Not Available Not Available Not Available doxycycline hyclate 100 mg tablet Take 1 tablet twice a day by oral route as directed for 10 days. active Not Available Not Available No t Available atenolol 50 mg tablet 08/21 completed Not Available Not Available Not Available Triamterene W/Hctz 37.5 mg-25 mg tablet Take 1 tablet every day by oral route. active Not Available Not Available No t Available pilocarpine 7.5 mg tablet active Not Available Not Available Not Available mirtazapine 7.5 mg tablet 08/04 completed Not Available Not Available Not Available nitrofurant oin monohydrate /macrocryst als 100 mg capsule 08/21 completed Not Available Not Available Not Available estradiol 08/21 completed Not Available Not Available Not Available simvastatin 06/26 completed Not Available Not Available Not Available Lumigan 0.01 % eye drops 11/06 completed Not Available Not Available Not Available Shingrix (PF) 50 mcg/0.5 mL intramuscul ar suspension, kit 08/21 completed Not Available Not Available Not Available Vitals Date Recorded Respiratory rate Oxygen saturation Oxygen saturation in Arterial blood by Pulse oximetry Heart rate Body temperature Systolic blood pressure Diastolic blood pressure Provider Name and Address Organization Details Last Updated DateTime 9 20 /min 98 % 98 % 64 /min 98 [degF] 132 mm[Hg] 64 mm[Hg] Not Available [facility] 9 11:59:31 Date Recorded Heart rate Oxygen saturation Oxygen saturation in Arterial blood by Pulse oximetry Respiratory rate Body temperature Systolic blood pressure Diastolic blood pressure Systolic blood pressure Diastolic blood pressure Provider Name and Address Organization Details Last Updated DateTime 2 80 /min 99 % 99 % 16 /min 98.4 [degF] 184 mm[Hg] 86 mm[Hg] 170 mm[Hg] 82 mm[Hg] Not Available [facility] 2 21:16:36 Date Recorded Oxygen saturation Oxygen saturation in Arterial blood by Pulse oximetry Heart rate Respiratory rate Body temperature Systolic blood pressure Diastolic blood pressure Provider Name and Address Organization Details Last Updated DateTime 9 97 % 97 % 80 /min 16 /min 98.5 [degF] 126 mm[Hg] 74 mm[Hg] Not Available [facility] 9 20:30:26 Date Recorded Heart rate Oxygen saturation Oxygen saturation in Arterial blood by Pulse oximetry Respiratory rate Body temperature Systolic blood pressure Diastolic blood pressure Provider Name and Address Organization Details Last Updated DateTime 3 71 /min 98 % 98 % 18 /min 97.7 [degF] 120 mm[Hg] 70 mm[Hg] Not Available [facility] 3 14:36:51 Social History Question Answer Notes LastModified by Organizat ion Details LastModified Time Tobacco Smoking Status Never Smoker REGINALD LUCIANO [address], [place], [address], [place] [facility] 11/06/2018 12:01:11 Do You Have An Advance Directive? No Information not available 11/06/2018 What Is Your Code Status? Full Code Information not available 11/06/2018 How Many Days In The Past Year Have You Had A Heavy Drinking Consumption (4+ Female, 5+ Male)? 0 Information not available 11/06/2018 Within The Past 12 Months, Has It Happened That The Food You Bought Just Didn't Last And You Didn't Have Money To Get More. Normal Information not available 11/06/2018 Within The Past 12 Months, Have You Worried That Your Food Would Run Out Before You Got Money To Buy More. Yes Information not available 11/06/2018 What Was The Date Of Your Most Recent Tobacco Screening? 11/06/2018 Information not available 05/04/2019 Sex: Unknown Functional Status None recorded. Mental Status None recorded. Family History Relationship Description Onset Age of this Age Resolved Age Notes LastModified by Organization Details LastModified Time Father No current problems or disability [email or web address] Not available 11/06 12:00:56 Father Coronary arterioscler osis [email or web address] Not available 06/26 20:27:13 Mother No current problems or disability [email or web address] Not available 11/06 12:00:56 Medical History Condition Response Diabetes N Coronary Artery Disease N Cancer N Stroke N Dementia N Asthma N Hypothyroidism N Depression N COPD N High Cholesterol Y Pulmonary Embolism N Hypertension Y A-fib N Kidney Disease N Gynecological HistoryNo gynecological history recorded. Obstetrics History GPAL:G 0 P 0 0 0 0 Past Encounters Encounter ID Performer Location Encounter Start Date Encounter Closed Date Diagnosis/Indication Diagnosis SNOMED-CT Code Diagnosis ICD10 Code Diagnosis Note [id number] REGINALD LUCIANO [facility] [address] [place] [address] 11/06/2018 11:49:39 11/07/2018 17:34:05 Urinary tract infectious disease 77398622 N39.0 [id number] TAIWO GARCIA NP [facility] [address] [place] [address] 06/26/2019 20:25:57 06/28/2019 09:41:36 Fall W19.XXXA Strain of muscle of right groin region [id number] S76.011A Pain in ri ght hip joint [id number] 37528 M25.551 [id number] REGINALD Harris [facility] [address] [place] [address] 08/21/2022 20:28:33 08/23/2022 15:48:20 Pain of right wrist [id number] 76140 M25.531 Sprain of right wrist 11 [id number] 7179971 S63.501A [id number] REGINALD Harris [facility] [address] [place] [address] 08/04/2023 14:32:55 08/04/2023 18:55:23 Essential hypertension [id number] I10 Status of condition: {{Acute Ex acerbation /Acute on chronic Ch ronic* Sta ble Worsen ing/Progre ssion Unco ntrolled C ritical: Warrants escalation to ED. Undete rmined: Unclear staging of condition. Needs further evaluation and management by PCP and/or Specialist }}. Testing/Re sults: BP 120/70 on scene. Discussion : BP controlled on current regimen. she is asymptomat ic. advised she discontinu e otc cold and flu medication . Plan & Management :follow up with pcp as scheduled. go to the ER with worsening symptoms cp, sob, weakness, dizziness, HAs, edema, vision changes. Productive cough [id number] 5 R05.9 Status of condition: {{Acute* E xacerbatio n/Acute on chronic Ch ronic Stab le Worseni ng/Progres kris Uncon trolled Cr itical: Warrants escalation to ED. Undete rmined: Unclear staging of condition. Needs further evaluation and management by PCP and/or Specialist }}. Testing/Re sults: CXR pending. Discussion :rest and keep hydrated, drink water.stop otc cold and flu medication .recommend otc Coricidin HBP cough and congestion take as directed on the package.st art RX Doxycyclin e 100 mg take 1 tab po bid x 10 days. take with food.use your rx albuterol inhaler as directed by pcp for wheezing, tightness, sob. Plan & Management :follow up with pcp in 3-5 days or sooner prn.go to the ER with new or worsening symptoms cp, sob, increased wheezing, weakness, dizziness, lethargy, fever, decreased urine output. Health Concerns Section Related Observation LastModified by Organization Detai ls LastModified Time None Recorded Concern Status LastModified by Organization Details LastModified Time None Recorded Advance Directives Directive N: Payers Encounter Date Sequence Insurance Name Policy Number Policy Velasquez Covered Member ID Velasquez Member ID Guarantor Name 11/06/2018 2 [facility]: ([place] [id number] Myranda Vergara [id number] Myranda Vergara 11/06/2018 1 [place] [facility] Myranda Vergara [id number] Myranda Neffsmith 06/26/2019 2 [facility]: ([place] [id number] Myranda Vergara [id number] Myranda Viramontesith 06/26/2019 1 [place] [facility] Myranda Viramontesith [id number] Myranda Neffsmith 08/21/2022 2 [facility] [id number] Myranda Vergara [id number] Myranda Neffsmith 08/21/2022 1 [place] [facility] Myranda Vergara [id number] Myranda Neffsmith 08/04/2023 1 [place] [facility] Myranda Vergara [id number] 79 Myranda Neffsmith 08/04/2023 2 *SELF PAY* Myranda Vergara 001 Myranda Vergara Notes Date Note Type Note Provider Name and Address Organization Details Recorded Time 11/06/2018 text/html Mrs. Jai levine s a 78 yo female new to and this provider who presents with complains of increased frequency of urination, pain and burning with urination X2 days. She reports that she experienced those symptoms before and was treated for UTI. Patient has been taking OTC Azo tablets since last night with the relief of pain.Patient denied fever, chills, nausea, vomiting, blood in her urine, abdominal/back/fla nk pain, confusion.Commorbi dities: HTN, erosive esophagitis; diverticulosis; insomnia; sjogren's syndrome REGINALD LUCIANO [address] [place], [address], [place] [facility] 11/06/2018 15:45:38 08/21/2022 text/html 82 y/o female known to new to provider with hx of HTN, hyperlipidemia, erosive esophagitis, diverticulosis, sjogren's syndrome, primary biliary cirrhosis. pt reports she [place] yesterday at the bank she tripped while going around the curb/ plants. states she fell landing on her back. denies hitting her head, no LOC. states her back was sore last night but feels better today. she c/o pain in her right distal forearm/ wrist. hand is swollen faint ecchymosis dorsally. she denies any numbness tingling. states she has had her hand and wrist wrapped since last night with tim wrap. REGINALD Harris [address], [place], [address], [place] [facility] 08/22/2022 01:00:22 08/04/2023 text/html 83 y/o female known to DH new to provider with hx of HTN, hyperlipidemia, erosive esophagitis, diverticulosis, insomnia, Sjogren's syndrome, primary biliary cirrhosis. pt reports her step son moved in with her recently and he was sick with cough, he is better but pt is still sick. she reports productive cough x 2 weeks now with green sputum. she has green nasal drainage at times also but denies any sinus pain. she has felt tired, achy and had intermittent wheezing. she has an albuterol inhaler but has not used it since she has been sick. states she was sick in March with similar symptoms/ bronchitis tx with z-janel by pcp. she denies cp, sob, dizziness, weakness. her appetite is decreased but she has been drinking well. she tried otc cold and flu medication no relief. she denies fever, RENEE, abdominal pain, vomiting. intermittent loose stools. no melena. pt is a non smoker. no known exposure to covid. REGINALD Harris [address], [place], [address], [place] [facility] 08/04/2023 16:24:21 OBGyn Episode No OBEpisode recorded.
== END 2025-01-11 13:12 | disposition home or self-care (01) ==
LOC: HO.RHES 12:36
PROVIDERS: PCP Internal Medicine; Visit Provider Internal Medicine Rheumatology
DX: I73.00 Raynaud's syndrome without gangrene (principal); R53.83 Other fatigue; M81.0 Age-related osteoporosis without current pathological fracture; M35.01 Sjogren syndrome with keratoconjunctivitis
CPT/HCPCS: 99214; G2211

== ENCOUNTER → 2025-01-11 12:35 | Outpatient (BNVA) | payer MEDICARE, SELFPAY | PROVIDERS: PCP Internal Medicine; Visit Provider Internal Medicine Rheumatology | DX: M35.01 Sjogren syndrome with keratoconjunctivitis (principal); M81.0 Age-related osteoporosis without current pathological fracture; I73.00 Raynaud's syndrome without gangrene; R53.83 Other fatigue | CPT/HCPCS: 99212 ==

== ENCOUNTER 2025-06-14 12:44 | Outpatient (AMB) | payer MEDICARE, SELFPAY ==
[2025-06-14 12:47] VITALS: BP 140/70; PULSE 65; O2SAT 99; BMI 26.2
--- NOTE | 2025-06-14 12:47 | MHC.OFFVIS ---
Vital Signs 06/14/25 12:47 Height 5 ft Weight 134 lb 0.657 oz BMI 26.2 BP 140/70 H Blood Pressure Location Rt brachial Position Sitting Pulse 65 Pulse Source Pulse Oximeter Pulse Oximetry (%) 99 Oxygen Delivery Method Room Air Intake Visit Reasons: 3 Months Intake Note: Patient presents for follow up on osteoarthritis, sjogren's follow up Accompanied by: Self / Same As Patient Allergies alendronate sodium Adverse Reaction (Intermediate, Verified 06/14/25 13:13) bloating, dizzy penicillin G Adverse Reaction (Intermediate, Verified 01/11/25 12:41) Unknown aspirin Adverse Reaction (Unknown, Verified 01/11/25 12:41) Unknown nitrofurantoin Adverse Reaction (Unknown, Verified 01/11/25 12:41) Unknown povidone Adverse Reaction (Unknown, Verified 01/11/25 12:41) povidine idodine topical Sulfa (Sulfonamide Antibiotics) Adverse Reaction (Unknown, Verified 01/11/25 12:41) Unknown egg allergy Adverse Reaction (Unknown, Uncoded 11/14/24 13:47) Unknown HPI HPI 3 Months: Details: She continues to have fatigue. She has not followed up with PCP. She has more people living in her home with her. He continues to have feeling of cold hands and feet. Physical Exam Vital Signs: Last Vital Signs Pulse 65 06/14/25 12:47 BP 140/70 H 06/14/25 12:47 Pulse Ox 99 06/14/25 12:47 Oxygen Delivery Method Room Air 06/14/25 12:47 BMI result Body Mass Index 26.2 Assessment & Plan Assessment & Plan (1) Raynaud disease without gangrene: Comment: She continues to have cold sensation of hands and feet. She remains on amlodipine 5 mg daily. Increasing dose to 12.5 mg daily caused lower extremity edema, which resolved after amlodipine dose was reduced. I need to consider alternative etiologies contributing to her symptoms such as thyroid disease or peripheral vascular disease before I escalate therapy for Raynaud's syndrome. Code(s): I73.00 - Raynaud's syndrome without gangrene Category: Medical Plan: Continue amlodipine to 12.5 mg once weekly TSH ordered Vascular surgery consultation for workup for peripheral vascular disease Return to clinic in 3 months (2) Sjogrens syndrome: Comment: Dry mouth is stable on Biotene OTC products (losenges qhs) and pilocarpine. Rheumatology history. Positive SSA antibody and [employer] antibody. She has sicca symptoms. She has been on azathioprine for possible joint symptoms started by Dr. Dunn . Azathioprine discontinued 12/13/2024 as patient did not have any clinical evidence of inflammatory arthritis and it is not the preferred DMARD therapy for Sjogren's related inflammatory arthritis. 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 Monitor clinically for recurrence of inflammatory arthritis Return to clinic in 3 months (3) Osteoporosis: Comment: Vitamin-D level 11/2024 >100. She discontinued vitamin-D supplement. Normal calcium. She did not tolerate alendronate. We discussed next steps in treatment. Reclast is indicated. Discussed side effects, benefits and monitoring. History: On bone density 04/06/2024 with lowest T-score -2.5 femoral neck, total hip -2.0, AP spine -0.2. Treatment is indicated. No history of fragility fracture. Alendronate started 12/2024-02/2025 discontinued due to dizziness and bloating. Code(s): M81.0 - Age-related osteoporosis without current pathological fracture Category: Medical Plan: Labs ordered prior to Reclast Reclast PA Bone density due March 2026 Return to clinic in 3 months (4) Fatigue: Comment: Affecting patient's function as she sleeps in for most of the day. labs 12/2024 reveal normocytic anemia. Code(s): R53.83 - Other fatigue Category: Medical Plan: I recommend that she follow up with PCP for further workup of anemia to determine cause as it may be contributing to her fatigue. Consider sleep study to rule out sleep apnea Orders: Orders Albumin Level Today M81.0 - Age-related osteoporosis without current pathological fracture Collagen Type I C-Telopeptide Today M81.0 - Age-related osteoporosis without current pathological fracture Alkaline Phosphatase Bone Today M81.0 - Age-related osteoporosis without current pathological fracture Vitamin D 25-OH Total Today M81.0 - Age-related osteoporosis without current pathological fracture TSH reflex Free T4 Today M81.0 - Age-related osteoporosis without current pathological fracture Calcium Today M81.0 - Age-related osteoporosis without current pathological fracture Creatinine Today M81.0 - Age-related osteoporosis without current pathological fracture Referrals Vascular Surgery Referral R20.9 - Unspecified disturbances of skin sensation Medications: Refilled amlodipine Reduce dose 5 mg PO DAILY 90 tabs 4RF pilocarpine HCl 5 mg PO TID 90 tabs 4RF Discontinued alendronate Discontinued Reason: Doctor's Order 70 mg PO QWEEK 12 tabs 1RF Coding Level of Care Code Est Pt Level 4 (28457) Complex EM visit Add On G2211 Diagnoses Raynaud disease without gangrene I73.00 Sjogren's syndrome with keratoconjunctivitis sicca M35.01 Sjogren organ or system involvement: keratoconjunctivitis Osteoporosis M81.0 Fatigue R53.83
--- OUTSIDE RECORDS SUMMARY | 2025-06-14 13:56 | XMS_ITS | Clinical Summary ---
Author Organization [facility] [address] [facility] Address [address] [place] [address] Phone Care Team Providers Care Terrestrial Ecologist Name Role Phone Deneen Castelan MD Primary Care Provider [phone] Allergies Active Allergy Reactions Criticality Noted Date [...] (TIMOPTIC) 0.5 % ophthalmic solution 10/05/2024 Active alendronate (FOSAMAX) 70 mg tablet 12/13/2024 Active ursodioL (ACTIGALL) 500 mg tabletIndication s:Primary biliary cholangitis (CMS/HCC V24, CMS/HCC V28) TAKE ONE TABLET BY MOUTH TWICE A DAY 180 tablet 3 01/29/2025 Active Active Problems Problem Noted Date Diagnosed Date Primary biliary cholangitis (CMS/HCC V24, CMS/HC C V28) 01/01/2025 Raynaud's phenomenon (by history or observed) Chronic fatigue 01/01/2025 Social History Tobacco Use Types Packs/Day Years [...] history exists Cholesterol Screening (Lipid Panel) 05/12/2024 Falls Risk Assessment 05/12/2024 Medicare Annual Wellness Visit 05/12/2024 Osteoporosis Screening (Bone Density Screening) 05/12/2024 Social Influencers of Health Screening 05/12/2024 Depression Screening 10/11/2024 Hypertension/CHF/CAD Annual BMP Blood Test 01/02/2025 COVID-19 Vaccine ( season) 2025 07/25/2022, 01/14/2022, 08/20/2021, Additional history exists Influenza Vaccine (#1) 2025 DTaP,Tdap,and Td Vaccines (3 - Td or [...] age to complete this topic Meningococcal B Vaccine Aged Out No l onger eligible based on patient's age to complete this topic RSV Immunization Patients Under 20 months Aged Out No longer eligible based on patient's age to complete this topic Varicella Vaccines Aged Out No longer eligible based on patient's age to complete [place] [id number] MEDICARE [facility] Care Teams Terrestrial Ecologist Relationship Specialty Start Date End Date Deneen Castelan MD [address] [place] [address] MIKE Benito PCP - General Internal Medicine 10/26/24
== END 2025-06-14 13:28 | disposition home or self-care (01) ==
LOC: HO.RHES 12:44
PROVIDERS: PCP Internal Medicine; Visit Provider Internal Medicine Rheumatology
DX: I73.00 Raynaud's syndrome without gangrene (principal); M35.01 Sjogren syndrome with keratoconjunctivitis; M81.0 Age-related osteoporosis without current pathological fracture; R53.83 Other fatigue
CPT/HCPCS: 99214; G2211

== ENCOUNTER 2025-06-14 12:44 | Outpatient (REF) | payer MEDICARE, SELFPAY ==
[2025-06-14 18:28] LABS: Albumin Level 3.8 g/dL (3.5-5.0); Calcium 8.9 mg/dL (8.4-10.2); Estimated Glomerular Filt Rate > 60
[2025-06-18 21:34] LABS: Collagen Type I C-Telopeptide 172 pg/mL (see note)
== END 2025-06-14 12:45 | disposition home or self-care (01) ==
LOC: HO.HKASLDS 12:44
PROVIDERS: PCP Internal Medicine; Visit Provider Internal Medicine Rheumatology
DX: I73.00 Raynaud's syndrome without gangrene (principal); M35.01 Sjogren syndrome with keratoconjunctivitis; M81.0 Age-related osteoporosis without current pathological fracture; R53.83 Other fatigue; Z79.899 Other long term (current) drug therapy
CPT/HCPCS: 36415; 82040; 82306; 82310; 82523; 82565; 84075; 84443; 86431; 99212